=== PATIENT | female | born 1955 | race Caucasian/White ===

== ENCOUNTER → 2023-06-09 13:01 | Outpatient (BNVA) | payer MEDICARE, MEDICAID, SELFPAY | PROVIDERS: PCP Physician Assistant; Referring Provider Physician Assistant; Visit Provider Podiatrist | DX: L60.0 Ingrowing nail (principal); E11.9 Type 2 diabetes mellitus without complications; M79.671 Pain in right foot; R60.0 Localized edema; R06.09 Other forms of dyspnea | CPT/HCPCS: 11750 ==

== ENCOUNTER → 2023-06-23 13:16 | Outpatient (BNVA) | payer MEDICARE, MEDICAID, SELFPAY | PROVIDERS: PCP Physician Assistant; Referring Provider Physician Assistant; Visit Provider Podiatrist | DX: L60.0 Ingrowing nail; E11.9 Type 2 diabetes mellitus without complications; M79.671 Pain in right foot; K90.0 Celiac disease; R60.0 Localized edema; M79.672 Pain in left foot | CPT/HCPCS: 99214 ==

== ENCOUNTER → 2023-07-29 13:40 | Outpatient (BNVA) | payer MEDICARE, MEDICAID, SELFPAY | PROVIDERS: PCP Physician Assistant; Referring Provider Physician Assistant; Visit Provider Podiatrist | DX: L60.0 Ingrowing nail; E11.9 Type 2 diabetes mellitus without complications; K90.0 Celiac disease; R60.9 Edema, unspecified; L03.031 Cellulitis of right toe | CPT/HCPCS: 99213 ==

== ENCOUNTER → 2023-12-01 12:59 | Outpatient (BNVA) | payer MEDICARE, MEDICAID, SELFPAY | PROVIDERS: PCP Physician Assistant; Referring Provider Physician Assistant; Visit Provider Podiatrist | DX: E11.9 Type 2 diabetes mellitus without complications (principal); L60.2 Onychogryphosis; K90.0 Celiac disease ==

== ENCOUNTER → 2024-04-17 13:02 | Outpatient (BNVA) | payer MEDICARE, MEDICAID, SELFPAY | PROVIDERS: PCP Emergency Medicine; Referring Provider Physician Assistant; Visit Provider Podiatrist | DX: E11.9 Type 2 diabetes mellitus without complications (principal); K90.0 Celiac disease; R60.0 Localized edema ==

== ENCOUNTER → 2024-09-11 10:30 | Outpatient (BNVA) | payer MEDICARE, MEDICAID, SELFPAY | PROVIDERS: PCP Emergency Medicine; Referring Provider Emergency Medicine; Visit Provider Podiatrist | DX: L60.2 Onychogryphosis (principal); R60.0 Localized edema; K90.0 Celiac disease; E11.9 Type 2 diabetes mellitus without complications; R09.89 Other specified symptoms and signs involving the circulatory and respiratory systems; R20.8 Other disturbances of skin sensation | CPT/HCPCS: 11719 ==

== ENCOUNTER → 2025-01-15 10:31 | Outpatient (BNVA) | payer MEDICARE, MEDICAID, SELFPAY | PROVIDERS: PCP Emergency Medicine; Referring Provider Emergency Medicine; Visit Provider Podiatrist | DX: L60.3 Nail dystrophy (principal); B35.1 Tinea unguium; L60.2 Onychogryphosis; E11.9 Type 2 diabetes mellitus without complications; M10.9 Gout, unspecified; K90.0 Celiac disease; R09.89 Other specified symptoms and signs involving the circulatory and respiratory systems; R60.0 Localized edema; R20.8 Other disturbances of skin sensation; L85.8 Other specified epidermal thickening | CPT/HCPCS: 11719; 11720 ==